=== PATIENT | male | born 1965 | race Caucasian/White ===

== ENCOUNTER 2019-10-08 07:34 | Day surgery (SDC) | payer OTHER ==
[2019-10-08] MEDS ORDERED: Sodium Chloride 0.9% 10 ML Syringe FLUSH PRN (08:11)
[2019-10-08] MEDS ORDERED: Bupivacaine 0.25%/EPINEPHrine 1:200,000 30 ML SDV ONE (08:40)
[2019-10-08] MEDS ORDERED: Bupivacaine 0.25%/EPINEPHrine 1:200,000 30 ML SDV INJECT ONE ×2 (09:26)
--- NOTE | 2019-10-08 15:18 | OR ---
PREOPERATIVE DIAGNOSIS: Scalp epidermal cyst x3. POSTOPERATIVE DIAGNOSIS: Scalp epidermal cyst x3. PROCEDURE PERFORMED: Excision of scalp epidermal cysts x3, largest cyst size approximately 2 cm, complex closure requiring creation of subcutaneous skin flaps. ANESTHESIA: Local anesthesia. COMPLICATIONS: None. BLOOD LOSS: Minimal. FINDINGS: All 3 masses were grossly consistent with an epidermal cyst. INDICATIONS FOR PROCEDURE: Mr. Azevedo is a 54-year-old male who has had epidermal cysts on his scalp removed in the past back when he was in the [place]. 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 He would like to have these removed. Normally we do these in the office, but I thought that doing 3 of these without any access to cautery in the office on the scalp could potentially be difficult. So, this was done in the operating room with just local anesthetic and formal cautery available. DETAILS OF PROCEDURE: After informed consent was obtained, the patient was brought to the operating room and placed supine on the operating table. He was prepped and draped in the usual sterile fashion. His hair had been previously shaved. The local anesthetic was infiltrated around all 3 cysts. We then selected the first one and made a narrow ellipse incision with the scalpel. The dermis was undermined to get around the cyst in its entirety. We then carried this down sharply to the base of the cyst and we were able to get under it and amputate it. There was no spillage of cyst contents. Electrocautery was used for hemostasis. It was then closed with 3-0 Vicryl deep dermal sutures and the skin was stapled. In an identical fashion, we excised the other 2 cysts. The incisions for these ranged between 2 to 4 cm. All of them required subcutaneous skin flaps. The patient tolerated the procedure well, and I will send his pathology report in the mail. He will come back for a nurse visit in 7 to 10 days for staple removal. He will follow up with me on an as needed basis if he has any concerns about his excisions. ADDENDUM (requested by medical records): Cyst sizes were 0.8 cm, 1.1 cm, and 1.7 cm. The were excised in there entirety with grossly negative margins. There was no spillage of cyst contents. PATHOLOGY: Skin, scalp x3 Pilar (trichilemmal) cyst x3. RKM: 10/08/2019 10:10:03 MODL: 10/08/2019 14:49:04 /[id number] MTDD
--- NOTE | 2019-10-13 13:04 | LETTER ---
10/10/2019 RE: YOGESH MENDOZAHARRIETT : 1965 Yogesh [place]io [place] [id number] [place] [address] ADELA Jain [id number] Dear Mr. Azevedo: I am writing to you to inform you of the pathology results of your recent scalp mass excisions. As we expected, these were all benign. The medical term for them is a hilar or trichilemmal cyst. These carry no risk of cancer. You do not need any further followup for these. Please call me if you have any questions or concerns about your incisions. Warmest regards,
== END 2019-10-08 10:27 | disposition home or self-care (01) ==
LOC: VM.SDS 07:34
PROVIDERS: ATTEND Student in an Organized Health Care Education/Training Program
DX: L72.11 Pilar cyst (principal); Z11.59 Encounter for screening for other viral diseases
CPT/HCPCS: U0002

== ENCOUNTER 2021-10-29 16:44 | Emergency (ER) | payer OTHER ==
[2021-10-29] MEDS: Take Home: Cephalexin 500 MG Cap, 4 Cap Pack PO ONE (17:20)
== END 2021-10-29 17:22 | disposition home or self-care (01) ==
LOC: VM.ED 16:44
DX: L03.114 Cellulitis of left upper limb (principal)
CPT/HCPCS: 99282